=== PATIENT | male | born 1955 | race African-American/Black ===

== ENCOUNTER 2020-07-25 16:23 | Emergency (ER) | payer MEDICARE, OTHER ==
[~2020-07-25] VITALS: Ht 165.1 cm; Wt 81.6 kg
--- NOTE | 2020-07-25 18:34 | Diagnostic Imaging Report ---
EXAM: CT Head Without Intravenous Contrast CLINICAL HISTORY: PAIN TECHNIQUE: Axial computed tomography images of the head/brain without intravenous contrast. CTDI is 53.4 mGy and DLP is 1010.2 mGy-cm. One or more of the following dose reduction techniques were used: automated exposure control, adjustment of the mA and/or kV according to patient size, use of iterative reconstruction technique. COMPARISON: No relevant prior studies available. FINDINGS: Brain: No acute intracranial hemorrhage, large hypodensity, or significant mass effect. Nonspecific areas of hypoattenuation in the periventricular white matter likely represent the sequela of chronic small vessel ischemic disease. Ventricles: Ventricular and sulcal prominence commensurate with the patient's age. Bones/joints: No acute abnormality. Soft tissues: Indeterminate 1.6 cm hyperattenuating circumscribed right scalp nodule with surrounding edema. Sinuses: No significant abnormality. Mastoid air cells: No significant abnormality. IMPRESSION: 1. No acute intracranial abnormality. 2. Indeterminate 1.6 cm right scalp nodule with surrounding edema.
[2020-07-25] MEDS ORDERED: HYDROcodone/Acetamin 5/325 tab ORAL ONE (19:45)
--- NOTE | 2020-07-25 20:03 | Emergency Room Report ---
History of Present Illness General Chief Complaint: Head Injury Source: Patient Present Illness Allergies: Coded Allergies: No Known Allergies (Unverified , 07/25/20) COVID-19 Screening Contact w/high risk pt: No Experienced COVID-19 symptoms?: No COVID-19 Testing performed [employer]: No Nursing Documentation-PMH Past Medical History: No Stated History Review of Systems All Other Systems: negative except mentioned in HPI Physical Exam Vital Signs Date Time Temp Pulse Resp B/P (MAP) Pulse Ox O2 Delivery O2 Flow Rate FiO2 07/25/20 17:53 98.2 78 16 140/80 (100) 98 Room Air Medical Decision Making PA Attestation Dr. Guevara Is my supervising Physician whom patient management has been discussed with. Diagnostic Impression: Primary Impression: Infected epidermoid cyst ER Course Pt. presents to the ED c/o pain, swelling, and erythema of the right side of the scalp. Ddx considered but are not limited to cellulitis, abscess, cystic acne, necrotizing fasciitis, insect bite, Epidermoid cyst. Vital signs: are WNL, pt. is afebrile H&PE are most consistent with Infected Epidermoid cyst of the scalp ORDERS: none required at this time, the diagnosis is clinical ED INTERVENTIONS: -I & D. DISCHARGE: At this time pt. is stable for d/c to home. Will provide printed p atient care instructions, and any necessary prescriptions. Care plan and follow up instructions have been discussed with the patient prior to discharge. CT/MRI/US Diagnostic Results CT/MRI/US Diagnostic Results : Imaging Test Ordered: CT Head no contrast Impression " unremarkable other than 1.6cm ST-scalp nodule ." --Per official radiology report- Please see report for specific details. Last Vital Signs Date Time Temp Pulse Resp B/P (MAP) Pulse Ox O2 Delivery O2 Flow Rate FiO2 07/25/20 17:53 98.2 78 16 140/80 (100) 98 Room Air Status: improved Disposition: HOME, SELF-CARE Condition: Stable Scripts Hydrocodone/Acetaminophen 5-325* (HYDROCODONE/ACETAMINOPHEN 5-325*) 1 Each Tablet 1 TAB ORAL Q6H PRN for For Pain, #10 TAB 0 Refills Prov: Maryana Zhong 07/25/20 Mupirocin* (MUPIROCIN*) 22 Gm Oint...g. 1 APPLIC TOPIC THREE TIMES A DAY, #22 GM Prov: Maryana Zhong 07/25/20 Trimethoprim/Sulfamethoxazole 160/800* (BACTRIM DS TABLET*) 1 Each Tablet 1 TAB ORAL TWICE A DAY for 7 Days, #14 TAB Prov: Maryana Zhong 07/25/20 Cephalexin* (KEFLEX*) 500 Mg Capsule 500 MG ORAL EVERY 12 HOURS for 7 Days, #14 CAP 0 Refills Prov: Maryana Zhong 07/25/20 Referrals: NOT CHOSEN IPA/,REFERRING (PCP) Matilde Da Silva [facility] Patient Instructions: Epidermal Cyst Additional Instructions: Take medications as directed. DERMATOLOGY FOLLOW Up for Surgical Removal Follow up with a Primary Care Provider in 3-5 days, even if your symptoms have resolved. --Please review list of primary care clinics, if you do not already have a primary care provider Return sooner to ED if new symptoms occur, or current symptoms become worse. Do not drink alcohol, drive, or operate heavy machinery while taking [place] as this may cause drowsiness. - Please note that this Emergency Department Report was dictated using [employer] publishing specialist technology software, occasionally this can lead to erroneous entry secondary to interpretation by the dictation equipment. Maryana Zhong Jul 25, 2020 20:03
[2020-07-25] MEDS ORDERED: BACTRIM DS TAB1 EAC1 ORAL (20:04)
[2020-07-25] MEDS ORDERED: MUPIROCIN22 GM TOPIC (20:04)
[2020-07-25] MEDS ORDERED: CEPHALEXIN500 MG ORAL (20:04)
[2020-07-25] MEDS ORDERED: HYDROCODON-ACE1 EA15 ORAL (20:05)
[2020-07-25 20:30] VITALS: BP 140/80
[2020-07-25 20:35] VITALS: BP 140/80
--- NOTE | 2020-07-25 20:35 | NUR ---
ER DISCHARGE NOTE: Patient is cleared to be discharged per ERMD, pt is aox4, on room air, with stable vital signs. pt was given dc and prescription instructions, pt was able to verbalize understanding, pt id band removed without complications. pt is able to ambulate with steady gait. pt took all belongings.
== END 2020-07-25 20:36 | disposition home or self-care (01) ==
LOC: EDBD 16:23 → EMR 18:48
DX: L72.8 Other follicular cysts of the skin and subcutaneous tissue (principal)
CPT/HCPCS: 70450; 99284